=== PATIENT | female | born 1960 ===

== ENCOUNTER 2016-06-14 18:19 | Observation (INO) | payer OTHER ==
--- NOTE | 2016-06-14 19:17 | ED ---
Upper Extremity Pain - HPI Summary HPI Summary: Patient is transferred from [facility] after two unsuccessful attempts at reducing her left shoulder. She dislocated it yesterday when she fell trying to hang a shower curtain at home. She had pain in the shoulder at the time but did not seek treatment until today. She denies previous dislocations, N/T in the extremity or inability to move her elbow, wrist or hand. - History of Current Complaint Chief Complaint: EDExtremityUpper Stated Complaint: LEFT SHOULDER INJURY-CICERO XF Time Seen by Provider: 06/14/16 18:59 Hx Obtained From: Patient Mechanism Of Injury: Fall From A Standing Position Onset/Duration: Started Days Ago - 1, Traumatic Timing: Constant Severity Initially: Severe Severity Currently: Severe Pain Location: Shoulder - left Character: Dull, Aching, Stiffness Aggravating Factor(s): Movement Alleviating Factor(s): Nothing Associated Signs & Symptoms: Positive: Negative. Negative: Numbness/Tingling Related History: Dominant Hand Right - Allergies/Home Medications Allergies/Adverse Reactions: Allergies Allergy/AdvReac Type Severity Reaction Status Date / Time Penicillins Allergy Unknown Verified 06/14/16 22:32 Reaction Details Home Medications: Home Medications Alprazolam 0.25 mg PO BEDTIME 06/14/16 [History Confirmed 06/14/16] Atenolol [Tenormin 100 MG] 100 mg PO DAILY 06/14/16 [History Confirmed 06/14/16] Atorvastatin* [Lipitor*] 10 mg PO DAILY 06/14/16 [History Confirmed 06/14/16] Benicar 40 mg PO DAILY 06/14/16 [History Confirmed 06/14/16] Calcium Carbonate-Cholecalcife [Calcium 600 + D 600-200 mg-Unit] 2 tab PO DAILY 06/14/16 [History Confirmed 06/14/16] Clonidine HCl 0.2 mg PO DAILY 06/14/16 [History Confirmed 06/14/16] Folic Acid 1 mg PO DAILY 06/14/16 [History Confirmed 06/14/16] Hydrochlorothiazide 25 mg PO DAILY 06/14/16 [History Confirmed 06/14/16] Lipitor 10 MG* 10 mg PO BEDTIME 06/14/16 [History Confirmed 06/14/16] Omeprazole [Prilosec] 20 mg PO DAILY 06/14/16 [History Confirmed 06/14/16] Potassium Chloride Microencaps [Klor-Con M20] 60 meq PO BID 06/14/16 [History Confirmed 06/14/16] PMH/Surg Hx/FS Hx/Imm Hx Cardiovascular History: Reports: Hx Hypertension Musculoskeletal History: Reports: Other Musculoskeletal History Infectious Disease History: No Infectious Disease History: Denies: Traveled Outside the [place] in Last 30 Days - Family History Known Family History: Positive: None - Social History Occupation: Employed Full-time Lives: Alone Alcohol Use: None Substance Use Type: Reports: None Smoking Status (MU): Never Smoked Tobacco Review of Systems Positive: Myalgia, Decreased ROM - left shoulder Negative: Bruising Negative: Weakness, Paresthesia, Numbness All Other Systems Reviewed And Are Negative: Yes Physical Exam Triage Information Reviewed: Yes Vital Signs On Initial Exam: Initial Vitals Temp Pulse Resp BP Pulse Ox 98.3 F 74 16 145/107 98 06/14/16 18:25 06/14/16 18:25 06/14/16 18:25 06/14/16 18:25 06/14/16 18:25 Vital Signs Reviewed: Yes Appearance: Positive: Well-Appearing, Pain Distress, Obese Skin: Positive: Warm, Skin Color Reflects Adequate Perfusion, Dry, Soft Head/Face: Positive: Normal Head/Face Inspection Eyes: Positive: EOMI, SHYAM, Conjunctiva Clear ENT: Positive: Hearing grossly normal, Pharynx normal Neck: Positive: Supple, Nontender Respiratory/Lung Sounds: Positive: Clear to Auscultation, Breath Sounds Present Cardiovascular: Positive: RRR Musculoskeletal: Positive: Limited @ - any movement in left shoulder is limited by pain, Pain @ - TTP globally left shoulder Neurological: Positive: Sensory/Motor Intact, Alert, Oriented to Person Place, Time, NV Bundle Intact Distally Psychiatric: Positive: Affect/Mood Appropriate AVPU Assessment: Alert - [place] Coma Scale Coma Scale Total: 15 Procedures - Joint Reduction Joint Reduction Site: shoulder (L) Conscious Sedation: Yes - Dr. Davis Reduction Attempts: 1 Pre-Procedure NV Exam: Yes Post Joint Reduction Film: joint not reduced Diagnostics - Vital Signs Vital Signs Temp Pulse Resp BP Pulse Ox 06/14/16 18:25 98.3 F 74 16 145/107 98 - Laboratory Result Diagrams: 06/15/16 06:59 Lab Statement: Any lab studies that have been ordered have been reviewed, and results considered in the medical decision making process. Re-Evaluation - Re-Evaluation First Eval Re-Evaluation Time: 20:00 Change: Improved Comment: pain improved with reduction Second Eval Re-Evaluation Time: 20:30 Change: Worse - Post-reduction films show the joint has re-dislocated and she again has pain with any movement Course/Dx - Course Course Of Treatment: The patient's shoulder appears to be unstable, since it felt to relocate with maneuvers and the patient had immediate relief, only to appear dislocated after being placed in a sling for post-reduction films. Therefore, Dr. Fischer's with orthopedic surgery was consulted and he too was unable to secure a reduction in the ER. The patient was ultimately taken to the OR for closed reduction. She will follow Dr. Fischer's instructions for care. - Diagnoses Differential Diagnosis/HQI/PQRI: Positive: Arthritis, Bursitis, Contusion, Fracture (Closed), Hematoma, Laceration, Strain, Sprain Provider Diagnoses: Dislocation of left shoulder joint - Physician Notifications Discussed Care Of Patient With: Dr. Epstein, orthopedic surgery. Time Discussed With Above Provider: 20:25 Instructed by Provider To: MD Will See In ED Discharge - Discharge Plan Condition: Stable Disposition: ADMITTED TO [facility]
[2016-06-14] MEDS ORDERED: fentaNYL* 50 MCG/ML 5 ML VIAL (250 MCG VIAL) ONE (19:19)
[2016-06-14] MEDS ORDERED: Midazolam* 1 MG/ML 10 ML VIAL (10 MG) ONE ×2 (19:20→21:16)
[2016-06-14] MEDS ORDERED: Flumazenil* 0.1 MG/ML 5 ML MDV ONE (19:21)
[2016-06-14] MEDS ORDERED: Ondansetron INJ* 2 MG/ML VIAL ONE ×2 (19:22→21:16)
[2016-06-14] MEDS ORDERED: Naloxone* 0.4 MG/ML 1 ML VIAL ONE (19:22)
--- NOTE | 2016-06-14 20:04 | ED ---
Progress - Progress Note Progress Note: I PERFORMED MODERATE SEDATION FOR CLOSED REDUCTION OF LEFT SHOULDER DISLOCATION. SEE ED DOCUMENTATION Course/Dx - Diagnoses Provider Diagnoses: Shoulder dislocation
--- NOTE | 2016-06-14 20:39 | RAD ---
INDICATION: Left shoulder dislocation status post external reduction. TECHNIQUE: A single view of the left shoulder was obtained. FINDINGS: There is anterior subcoracoid dislocation of the humeral head which appears unchanged from the prior outside prereduction films obtained earlier today. No fracture is seen. IMPRESSION: ANTERIOR DISLOCATION OF THE HUMERUS.
--- NOTE | 2016-06-14 20:43 | RAD ---
INDICATION: Dislocation of the left shoulder status post external reduction. COMPARISON: Comparison is made with the prior outside studies of the same date. TECHNIQUE: 2 views of the left humerus were obtained. FINDINGS: There is anterior subcoracoid dislocation of the humeral head which appears unchanged. There is suggestion of a mild Hill-Sachs fracture. IMPRESSION: ANTERIOR DISLOCATION OF THE HUMERAL HEAD, UNCHANGED.
[2016-06-14] MEDS ORDERED: fentaNYL* 50 MCG/ML 2 ML VIAL (100 MCG VIAL) ONE ×2 (21:16→23:21)
--- NOTE | 2016-06-14 22:08 | RAD ---
INDICATION: Left shoulder dislocation status post external reduction. COMPARISON: Comparison is made with a prior x-ray study of the left shoulder of the same date. TECHNIQUE: A single view of the left shoulder was obtained. FINDINGS: There is anterior subcoracoid dislocation of the distal humerus which appears unchanged. IMPRESSION: ANTERIOR DISLOCATION OF THE HUMERUS, UNCHANGED.
[2016-06-14] MEDS ORDERED: Sodium Citrate/Citric Acid* 15 ML UDC ONE (22:45)
[2016-06-14] MEDS ORDERED: Lidocaine 2% PF* 5 ML VIAL ONE (23:21)
[2016-06-14] MEDS ORDERED: Propofol* 10 MG/ML 20 ML BTL IV PUSH ONE ×2 (23:21→23:45)
[2016-06-14] MEDS ORDERED: diPHENhydraMINE IV* 50 MG/ML 1 ml VIAL (BENADRYL) IV PRN (23:34)
[2016-06-14] MEDS ORDERED: Ondansetron INJ* 2 MG/ML VIAL IV PRN (23:34)
[2016-06-14] MEDS ORDERED: Morphine INJ* 2 MG/ML 1 ML SYRINGE IV PRN (23:34)
[2016-06-14] MEDS ORDERED: oxyCODONE/Acetamin 5/325 MG* TAB PO PRN ×2 (23:34)
[2016-06-14] MEDS ORDERED: Magnesium Hydroxide LIQ* 30 ML UDC PO PRN (23:34)
[2016-06-14] MEDS ORDERED: oxyCODONE TAB* 5 MG TAB PO PRN (23:34)
[2016-06-14] MEDS ORDERED: Acetaminophen TAB* 325 MG PO PRN (23:34)
[2016-06-15] MEDS ORDERED: oxyCODONE TAB* 5 MG TAB PO PRN (00:03)
[2016-06-15] MEDS ORDERED: PROCHLORPERAZINE INJ 5 MG/ML 2 ML VIAL IV PRN (00:03)
[2016-06-15] MEDS ORDERED: Ketorolac INJ* 30 MG/ML 1 ML VIAL IV PRN (00:03)
[2016-06-15] MEDS ORDERED: fentaNYL* 50 MCG/ML 2 ML VIAL (100 MCG VIAL) IV PRN (00:03)
--- NOTE | 2016-06-15 07:08 | OP ---
DATE OF OPERATION: 06/14/16 - ROOM #332 DATE OF : 56 SURGEON: Narciso Epstein MD SECURITY COMPLIANCE ENGINEER: None. ANESTHESIOLOGIST: Dr. Carey. ANESTHESIA: Conscious sedation. PRE-OP DIAGNOSIS: Left glenohumeral anterior dislocation. POST-OP DIAGNOSIS: Left glenohumeral anterior dislocation. OPERATIVE PROCEDURE: Closed reduction, left glenohumeral dislocation. INDICATIONS: Sadie is 55 years old. She dislocated her shoulder yesterday afternoon. She, the following day, went to the [facility] where closed reduction with conscious sedation was unsuccessful in the emergency room. She was transferred to our emergency room here where the ER staff failed another attempt at closed reduction. I tried one more time after that in the emergency room with conscious sedation and was unsuccessful. We talked about risks and benefits and she elected to proceed with closed versus open reduction in the operating room. EBL: None. COMPLICATIONS: None. FINDINGS: Very unstable anterior glenohumeral dislocation. DESCRIPTION OF PROCEDURE: Sadie was seen in the preoperative holding area and the correct site, side and procedure were identified. We came back to the operating room where we had a time-out and conscious sedation was administered. I then held some in line traction for about 4 to 5 minutes. This failed to reduce to the joint. I then performed a Milch type of maneuver and the clunk was noted. I brought in the intraoperative x-ray and some portable plain films were taken including an AP, scapular Y and an axillary lateral. This showed the glenohumeral joint to be reduced. On stability testing post reduction, she re-dislocated at about 30 to 45 degrees of abduction with any external rotation. It was quite unstable. The arm was placed in position of shoulder internal rotation and adduction and this was secured to the body with Derrick wrap and some tape. She was then taken to recovery room in stable condition. POSTOPERATIVE PLAN: Tomorrow morning when she is awake, I will get some standing AP and scapular Y views of the glenohumeral joint to make sure it is located prior to sending her home. [id number]/CPS #: [id number] MTDD
[2016-06-15 07:34] LABS: BUN/Creatinine Ratio 21.5 (8-20); Calcium 8.5 mg/dL (8.6-10.3); EGFR African American 120.8 (>60); Potassium 3.8 mmol/L (3.5-5.0)
--- NOTE | 2016-06-15 07:35 | RAD ---
HISTORY: Post reduction left shoulder COMPARISONS: June 14, 2016 at 9:40 PM VIEWS: 4, Frontal internal rotation, external rotation, outlet, and axillary views of the left shoulder FINDINGS: BONE DENSITY: Normal. BONES: There is no displaced fracture. JOINTS: There is no arthropathy. ALIGNMENT: There has been interval reduction of the left shoulder dislocation. The alignment is anatomic. SOFT TISSUES: Unremarkable. OTHER FINDINGS: None. IMPRESSION: INTERVAL REDUCTION OF LEFT SHOULDER DISLOCATION
--- NOTE | 2016-06-15 08:44 | RAD ---
INDICATION: Status post reduction of dislocated shoulder. COMPARISON: Similar radiograph June 14, 2016 TECHNIQUE: 3 views of the left shoulder were obtained. FINDINGS: The adequately corticated bones are in normal alignment. Joint spaces appear maintained. No fracture, dislocation or focal bony abnormality is seen. IMPRESSION: Normal radiograph of the left shoulder. If the patient's symptoms persist, follow-up imaging is recommended.
[2016-06-15] MEDS ORDERED: Valsartan TAB* 160 MG PO SCH (09:00)
[2016-06-15] MEDS ORDERED: Omeprazole CAP* 20 MG PO SCH (09:00)
[2016-06-15] MEDS ORDERED: Hydrochlorothiazide TAB* 25 MG PO SCH (09:00)
[2016-06-15] MEDS ORDERED: Atenolol TAB* 50 MG PO SCH (09:00)
[2016-06-15] MEDS ORDERED: Atorvastatin* 10 MG TAB PO SCH ×2 (09:00→21:00)
--- NOTE | 2016-06-15 10:56 | PN ---
Progress Note - Progress Note SOAP: Subjective: []Patient seen at bedside. Pain well managed left shoulder. Objective: [] Vital Signs Temp 98.6 F 06/15/16 06:20 Pulse 81 06/15/16 06:20 Resp 20 06/15/16 08:00 BP 144/78 06/15/16 06:20 Pulse Ox 98 06/15/16 08:00 Intake & Output 06/14/16 06/15/16 06/15/16 18:59 06:59 18:59 Intake Total 2150 644 Output Total 400 Balance 2150 244 Weight 255 lb 255 lb Intake: IV Fluids 750 644 LR 750 644 Oral 1400 Output: Urine 400 Laboratory Results - last 24 hr 06/15/16 06:59 Sodium 135 Potassium 3.8 Chloride 102 Carbon Dioxide 28 Anion Gap 5 BUN 14 Creatinine 0.65 Est GFR ( Amer) 120.8 Est GFR (Non-Af Amer) 94.0 BUN/Creatinine Ratio 21.5 H Glucose 114 H Calcium 8.5 L Left shoulder diffusely tender anteriorly no scchymosis axillary nerve function intact/ sensation intact left UE STAS wraps removed, shoulder not moved while gown donned, Donjoy sling slid on and multiple stas wraps applied around sling and secured to gown and stas with multiple safety pins. Assessment: []s/p closed reduction unstable left shoulder dislocation under anesthesia POD # 1 Plan: []Discharge home today Hydrocodone Rx sent to pharmacy Follow up next week with Dr. Epstein
[2016-06-15] MEDS: cloNIDine TAB* 0.1 MG PO SCH ×2 (11:43→12:04)
[2016-06-15] MEDS: Potassium Chlor TAB* 20 MEQ TAB.ER PO SCH ×2 (11:44→12:04)
[2016-06-15] MEDS: Folic Acid TAB* 1 MG PO SCH ×2 (11:44→12:04)
[2016-06-15] MEDS: HYDROcodone/ACETAMIN 5-325 MG* 1 TAB PO PRN ×2 (12:19→16:46)
[2016-06-15 15:37] VITALS: BP 111/58
[2016-06-15] MEDS ORDERED: amLODIPine TAB* 5 MG PO SCH (17:00)
[2016-06-15] MEDS ORDERED: ALPRAZolam TAB* 0.25 MG PO SCH (21:00)
--- NOTE | 2016-06-16 02:25 | DS ---
DISCHARGE SUMMARY: DATE OF ADMISSION: 06/15/16 DATE OF DISCHARGE: 06/15/16 ATTENDING PHYSICIAN: Dr. Narciso Epstein. ADMISSION DIAGNOSIS: Left glenohumeral anterior shoulder dislocation. DISCHARGE DIAGNOSIS: Left glenohumeral anterior shoulder dislocation. SURGERY PERFORMED: Closed reduction under sedation in the operating room, left glenohumeral dislocation. HOSPITAL COURSE: The patient is a 55-year-old female, who dislocated her shoulder on [id number] of June after falling into her bathtub hanging a shower curtain. She was seen initially in the [facility] where closed reduction with conscious sedation was unsuccessful. She was transferred to the emergency room here at [facility] on the 15 of June and ER staff was unsuccessful in another attempt at closed reduction of the shoulder. Dr. Epstein was called and saw the patient in the emergency department as well and attempted a closed reduction again under conscious sedation without success. It was felt that she would need to go to the operating room for deeper sedation. She was taken to the operating room that evening and tolerated the closed reduction without any complications. It was noted by Dr. Epstein that the shoulder is very unstable with easily redislocation at about 30 to 45 degrees of abduction and any external rotation. She was placed in multiple Derrick wraps secured to the body. Postoperatively, she did go down for x-rays in the morning at 0800 on the , which showed continued reduction of her shoulder. No fractures identified. I was able to remove the Derrick wrap. She did not move the shoulder away from her body. We are able to slide hospital gown on. She did not have any other clothing with her. I was able to also slide a DonJoy shoulder sling on to the arm again without any motion away from her body. Multiple Derrick wraps were done, wrapped around the sling to prevent this from moving whatsoever. Multiple pins also applied to prevent any sliding of the shoulder back into extension. She stated that this sling was more comfortable than the prior Derrick wraps only. It was felt that she was stable for discharge to home on the as her pain was under adequate control. She wished to have hydrocodone for pain and this was sent through the hospital system to her pharmacy in [facility] in [place], # 60 tablets, with no refills one p.o. q.3 hours p.r.n. pain. PLAN: The patient will be discharged home today. She is instructed not to remove the sling or the Derrick wraps. I have contacted the office via e-mail for her to have a followup appointment with Dr. Epstein early next week. As above, hydrocodone prescription sent to her pharmacy. She will continue on her regular home medications as outlined in her discharge paperwork. ZOFIA MASSEY [id number]/CPS #: [id number] MTDReinier
== END 2016-06-15 18:50 | disposition home or self-care (01) ==
LOC: ED 18:19 → OR 23:10 → SSU 06-15 00:30
PROVIDERS: ADMIT Orthopaedic Surgery Hand Surgery; ATTEND Orthopaedic Surgery Hand Surgery
DX: S43.015A Anterior dislocation of left humerus, initial encounter (principal); W18.2XXA Fall in (into) shower or empty bathtub, initial encounter; I10 Essential (primary) hypertension; E78.5 Hyperlipidemia, unspecified; M06.9 Rheumatoid arthritis, unspecified; Z88.0 Allergy status to penicillin
CPT/HCPCS: 36415; 80048; 93005; 96374; 99285; A9270-GY; G0378; J2250; J2270; J2310; J2405; J2704; J3010